=== PATIENT | male | born 1965 | race Caucasian/White ===

== ENCOUNTER 2018-12-14 08:50 | Observation (INO) ==
[2018-12-14 10:15] LABS: Hematocrit 43.4 % (42.0-52.0); Hemoglobin 14.4 gm/dL (13.5-18.0); Mean Cell Volume 97.5 fl (78-100); Mean Corpuscular Hemoglobin 32.4 pg (27-31); Mean Corpuscular Hgb Conc 33.2 g/dl (32-36); Mean Platelet Volume 11.7 fl (8-11.3); Neutrophil # 4.9 K/mm3 (1.3-6.0); Neutrophil % 66.9 % (42-75.0); Platelet Count 155 K/mm3 (150-450); Red Blood Count 4.45 M/mm3 (4.7-6.0); Red Cell Distribution Width 13.2 % (11.5-14.0); White Blood Count 7.3 K/mm3 (4.0-10.5)
[2018-12-14 10:36] LABS: Albumin * 2.8 gm/dl (3.4-5.0); Anion Gap 14.2 mmol/L (6.8-13.8); BUN/Creatinine Ratio 20.6 (9.0-21.6); Bilirubin, Total 0.8 mg/dL (0.0-1.1); CRP 0.9 mg/dL (0.0-0.9); Ca. Corrected For Albumin 9.6 mg/dL (8.4-10.2); Carbon Dioxide 29.2 mmol/L (24-32.6); Potassium 4.4 mmol/L (3.4-4.6); TSH * 19.543 uIU/mL (0.358-3.74); Total Protein 7.2 gm/dL (6.2-8.2); Troponin I 0.065 ng/mL (0.00-0.10)
[2018-12-14] MEDS ORDERED: FUROSEMIDE 10 MG/ML VIAL IV ONE (10:51)
[2018-12-14] MEDS ORDERED: cefTRIAXone SODIUM 1,000 MG/100 ML BAG IV ONE (11:50)
[2018-12-14] MEDS ORDERED: MORPHINE SULFATE 2 MG/ML DISP.SYRIN IV ONE (11:59)
[2018-12-14 12:07] LABS: Hemoglobin A1C 9.5 % (4.00-6.0)
[2018-12-14 12:16] LABS: Urine Bilirubin Negative (NEGATIVE); Urine Blood Negative /ul (NEGATIVE); Urine Ketone Negative (NEGATIVE); Urine Nitrite Negative (NEGATIVE); Urine Protein Negative (NEGATIVE); Urine Urobilinogen Normal (NORMAL)
[2018-12-14 12:27] LABS: Urine Appearance Clear (CLEAR); Urine Bacteria None Seen; Urine Color Yellow; Urine RBC 0-5 /hpf (0-5); Urine WBC 0-5 /hpf (0-5)
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
[2018-12-14 12:42] LABS: Cocaine Ur Negative (NEGATIVE); Urine Barbiturate Negative (NEGATIVE); Urine Benzodiazepines Negative (NEGATIVE); Urine PCP Negative (NEGATIVE)
[2018-12-14 12:43] LABS: Urine Opiates Positive (NEGATIVE); Urine THC Positive (NEGATIVE)
[2018-12-14] MEDS ORDERED: HYDROcodone/ACETAMINOPHEN 1 EACH TABLET PO PRN (13:43)
[2018-12-14] MEDS ORDERED: NORMAL SALINE 1,000 ML IV PRN (13:47)
[2018-12-14] MEDS: NABUMETONE 500 MG TABLET PO SCH ×2 (14:01→22:02)
[2018-12-14] MEDS: CEPHALEXIN MONOHYDRATE 500 MG CAPSULE PO SCH (16:37)
[2018-12-14] MEDS: FUROSEMIDE 10 MG/ML VIAL IV SCH ×2 (16:37→22:09)
[2018-12-14] MEDS: BACLOFEN 10 MG TABLET PO SCH ×2 (16:37→22:02)
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
[2018-12-15] MEDS: CEPHALEXIN MONOHYDRATE 500 MG CAPSULE PO SCH ×2 (00:30→07:31)
[2018-12-15] MEDS: FUROSEMIDE 10 MG/ML VIAL IV SCH ×2 (03:04→09:33)
[2018-12-15] MEDS: BACLOFEN 10 MG TABLET PO SCH (07:31)
[2018-12-15] MEDS: NABUMETONE 500 MG TABLET PO SCH (09:18)
[2018-12-15 10:12] LABS: Hematocrit 43.8 % (42.0-52.0); Hemoglobin 14.7 gm/dL (13.5-18.0); Mean Cell Volume 97.3 fl (78-100); Mean Corpuscular Hemoglobin 32.7 pg (27-31); Mean Corpuscular Hgb Conc 33.6 g/dl (32-36); Mean Platelet Volume 11.6 fl (8-11.3); Neutrophil # 4.2 K/mm3 (1.3-6.0); Platelet Count 161 K/mm3 (150-450); Red Cell Distribution Width 13.2 % (11.5-14.0); White Blood Count 6.9 K/mm3 (4.0-10.5)
[2018-12-15 10:24] LABS: Albumin * 2.6 gm/dl (3.4-5.0); Anion Gap 9.8 mmol/L (6.8-13.8); BUN/Creatinine Ratio 17.5 (9.0-21.6); Bilirubin, Total 0.8 mg/dL (0.0-1.1); Ca. Corrected For Albumin 9.6 mg/dL (8.4-10.2); Calcium * 8.8 mg/dL (7.9-10.9); Potassium 3.8 mmol/L (3.4-4.6)
--- NOTE | 2018-12-15 13:24 | DS ---
(1) Cellulitis Problem: Acute Qualifiers: Site of cellulitis: extremity Site of cellulitis of extremity: lower extremity Laterality: unspecified laterality Qualified Code(s): L03.119 - Cellulitis of unspecified part of limb (2) Diabetes mellitus Problem: Acute Qualifiers: Diabetes mellitus type: type 2 Diabetes mellitus senior care insulin use: without senior care use Diabetes mellitus complication status: without complication Qualified Code(s): E11.9 - Type 2 diabetes mellitus without complications (3) Fluid retention Problem: Acute (4) Hypothyroidism Problem: Acute Description of Stay: Nelson is a 53 yo male that was admitted to observation for cellulitis with fluid retention, uncontrolled diabetes, and new onset hypothyroidism. He had lower extremity pain and weakness due to the cellulitis and was reportedly unable to get around at home. He was admitted for observation to initiate treatment and monitor a response. He was given keflex for cellulitis, metformin for diabetes, levothyroxine for hypothyroidism, and lasix 40mg IV q6hr due to significant fluid retention and painful bilateral lower extremities. He had no shortness of breath or other symptoms of heart failure. He diuresed well. He is medically stable to be discharged to home today after he visits with the fuel efficient automobile designer. He will be continued on keflex for 10 days. He does need to follow closely with a physician for continued care of diabetes, hypothyroidism, and lower extremity edema. He is still weak and has difficulty understanding medications and treatment. He needs home health with nursing for medication set up, monitoring cellulitis, diabetes education, and monitoring of fluid. He needs physical therapy for evaluation and treatment of lower extremity weakness and for strengthening. He agrees to get home health with [facility]. He is home bound as it is physically taxing for him to leave the home. The need for home health care with skilled services is directly related to the time spent in face to face with Nelson today. Procedures Performed: none Results and Findings: Pending Mircobiology Results 12/14/18 10:23 Blood Blood Culture - Preliminary NO GROWTH 24 HOURS 12/14/18 10:05 Blood Blood Culture - Preliminary NO GROWTH 24 HOURS 12/14/18 10:56 Foot - Left Wound Culture - Preliminary Staphylococcus Species Lab Pending Results 12/14/18 10:05: WBC 7.3, RBC 4.45 L, Hgb 14.4, Hct 43.4, MCV 97.5, MCH 32.4 H, MCHC 33.2, RDW 13.2, Plt Count 155, MPV 11.7 H, Immature Gran % (Auto) 0.30, Immature Gran # (Auto) 0.02, Neutrophils % 66.9, Lymphocytes % 24.3, Monocytes % 6.6, Eosinophils % 1.2, Basophils % 0.7, Nucleated RBC % 0.0, Neutrophils # 4.9, Lymphocytes # 1.78, Monocytes # 0.5, Eosinophils # 0.1, Absolute Basophils 0.1 12/14/18 10:05: Sodium 138, Plasma Sodium 139, Potassium 4.4, Chloride 99, Carbon Dioxide 29.2, Anion Gap 14.2 H, BUN 26 H, Creatinine 1.26, Est GFR (Non- Af Amer) 64, BUN/Creatinine Ratio 20.6, Random Glucose 192 H, Calcium 9.0, Calcium Adj for Albumin 9.6, Total Bilirubin 0.8, AST 83 H, ALT 66, Alkaline Phosphatase 112, Troponin I 0.065, C-Reactive Prot, Quant 0.9, B-Natriuretic Peptide 2156 H, Total Protein 7.2, Albumin 2.8 L, TSH 19.543 H 12/14/18 10:05: Lactic Acid, Venous 1.3 12/14/18 10:05: ESR 22 H 12/14/18 10:05: Mean Blood Glucose 230, Hemoglobin A1c 9.5 H 12/14/18 12:16: Urine Color Yellow, Urine Appearance Clear, Urine pH 6.0, Ur Specific [place] 1.020, Urine Protein Negative, Urine Glucose (UA) Negative, Urine Ketones Negative, Urine Blood Negative, Urine Nitrate Negative, Urine Bilirubin Negative, Urine Urobilinogen Normal, Ur Leukocyte Esterase Negative, Urine RBC 0-5, Urine WBC 0-5, Ur Epithelial Cells None seen, Urine Bacteria None seen, Urine Culture Comments No culture indicated 12/14/18 12:16: Urine Opiates Screen Positive H, Barbiturate Screen Negative, Ur Phencyclidine Scrn Negative, Urine Amphetamine Positive H, U Benzodiazepines Scrn Negative, Urine Cocaine Screen Negative, Urine Marijuana (THC) Positive H 12/15/18 10:09: WBC 6.9, RBC 4.50 L, Hgb 14.7, Hct 43.8, MCV 97.3, MCH 32.7 H, MCHC 33.6, RDW 13.2, Plt Count 161, MPV 11.6 H, Immature Gran % (Auto) 0.30, Immature Gran # (Auto) 0.02, Neutrophils % 60.0, Lymphocytes % 28.5, Monocytes % 7.5, Eosinophils % 3.0, Basophils % 0.7, Nucleated RBC % 0.0, Neutrophils # 4.2, Lymphocytes # 1.98, Monocytes # 0.5, Eosinophils # 0.2, Absolute Basophils 0.1 12/15/18 10:09: Sodium 137, Plasma Sodium 139, Potassium 3.8, Chloride 96 L, Carbon Dioxide 35.0 H, Anion Gap 9.8, BUN 20, Creatinine 1.14, Est GFR (Non-Af Amer) 72, BUN/Creatinine Ratio 17.5, Random Glucose 199 H, Calcium 8.8, Calcium Adj for Albumin 9.6, Total Bilirubin 0.8, AST 65 H, ALT 58, Alkaline Phosphatase 95, Total Protein 7.0, Albumin 2.6 L Discharge Location: Home Disposition: Home Health Service Home Health Agency: [facility] Home Health Condition: Fair Face to Face Encounter completed per [facility] Guidelines: Yes Referrals: Jaquan Taylor DO [Staff Physician] - One Week (1 time hospital follow up visit) Rebecca Shelton MD [Staff Physician] - (Next available to establish care) Problem Oriented Discharge Instructions to Patient/Family: Diabetes and Standards of Medical Care, Cellulitis, Adult, [id number] Additional Patient Instructions (free text): [facility] new. Please call report and fax orders upon discharge. Prescriptions (Any new or edited meds): Cephalexin Monohydrate [Keflex] 500 mg PO Q8H #30 cap Furosemide [Lasix] 40 mg PO DAILY #7 tab HYDROcodone/ACETAMINOPHEN [Hydrocodone-Acetamin 5-325 mg] 1 ea PO Q6H PRN #30 tab PRN Reason: Pain Levothyroxine Sodium [Synthroid] 150 mcg PO DAILY@0700 #30 tab metFORMIN HCL [Glucophage] 1,000 mg PO BIDWM #60 tab Complete Home Medications List: Complete Home Medication List: Cephalexin Monohydrate [Keflex] 500 mg PO Q8H #30 cap 12/15/18 Furosemide [Lasix] 40 mg PO DAILY #7 tab 12/15/18 HYDROcodone/ACETAMINOPHEN [Hydrocodone-Acetamin 5-325 mg] 1 ea PO Q6H PRN #30 tab 12/15/18 Levothyroxine Sodium [Synthroid] 150 mcg PO DAILY@0700 #30 tab 12/15/18 metFORMIN HCL [Glucophage] 1,000 mg PO BIDWM #60 tab 12/15/18
[2018-12-15] MEDS ORDERED: LEVOTHYROXINE SODIUM 150 MCG TABLET PO SCH (15:55)
[2018-12-15 19:01] VITALS: BP 123/93
== END 2018-12-15 16:55 | disposition home health service (06) ==
LOC: MS 08:50 → ER 08:50
PROVIDERS: ADMIT Family Medicine; ATTEND Family Medicine
CPT/HCPCS: 36415; 71020; 71046; 73630; 80053; 80307; 81001; 83036; 83519; 83605; 83880; 84443; 84484; 85025; 85652; 86140; 87040; 87070; 87077; 87186; 93005; 96361; 96365; 96366; 96375; 99285; G0378